=== PATIENT | male | born 1955 | race Caucasian/White ===

== ENCOUNTER 2017-07-04 15:03 | Emergency (ER) | payer OTHER ==
[~2017-07-04] VITALS: Ht 170.2 cm; Wt 80.1 kg
[2017-07-04 15:08] VITALS: Ht 170.2 cm; Wt 80.1 kg
[2017-07-04] MEDS ORDERED: CETI10TA84 PO (15:36)
[2017-07-04] MEDS ORDERED: PRAV40TA PO (15:36)
[2017-07-04] MEDS ORDERED: ASPI81TA28 PO (15:36)
[2017-07-04] MEDS ORDERED: LISI-461 PO (15:36)
[2017-07-04] MEDS ORDERED: HYDROCODONE/ACETAMOPHEN 5/325MG TAB PO ONE (16:00)
--- NOTE | 2017-07-04 17:02 | DIAGNOSTIC IMAGING REPORT ---
R RIBS UNILATERAL WITH PA CHEST CLINICAL HISTORY: Right rib pain following fall. COMPARISON STUDY: No previous studies for comparison. FINDINGS: Note is made of a small to moderate right pneumothorax with superior pleural separation of 1.8 cm. There are several age indeterminate anterior right-sided rib fractures. This includes a suspected fracture the anterior right sixth rib. Cardiac size is normal. Mediastinal contours are unremarkable. There is no evidence of pulmonary edema. IMPRESSION: Small to moderate right apical pneumothorax. Several age indeterminate nondisplaced anterior right-sided rib fractures. Electronically signed by: Vikas Espinal M.D. 07/04/2017 5:01 PM Dictated Date/Time: 07/04/2017 4:54 PM
[2017-07-04] MEDS ORDERED: NORCO 5/325MG HOME PACK PO ONE (17:45)
[2017-07-04 17:56] VITALS: BP 116/62; PULSE 72; TEMP 36.5; O2SAT 96
[2017-07-05] MEDS ORDERED: OXYC1TAB3 PO (11:58)
--- NOTE | 2017-07-05 17:29 | EMERGENCY ROOM VISIT NOTE ---
ED Visit Note First contact with patient: 15:15 Chief Complaint: Right rib pain. History of Present Illness: Mr. Beth is a 62-year-old white male who ambulates into the ED complaining of right sided rib pains. Patient reports less than an hour ago he was ice skating with children, slipped and fell and struck the right side of his chest on the ice. He reports at the time of the injury he felt he heard a cracking ribs. Currently he is complaining of pain over the anterior lateral ribs with prominence in the fourth, fifth and sixth ribs. He describes his pain as a sharp sensation. He rates his discomfort 7/10. The pain increases with deep inspiration and palpation. He has not identified any alleviating factors related to the pain. He has not taken any medications for pain prior to arrival at the hospital. Associated with his pain he reports he feels mildly short of breath but when I asked him to distinguish shortness of breath versus difficulty breathing he could not. These reports at the time of the injury he was not feeling lightheaded or dizziness, at the time of the injury he did not strike his head or have a loss of consciousness and since the injury he has had no signs of head injury. Additionally he denies neck pain, back pain, left-sided chest pain, abdominal pain, nausea, vomiting. Review of Systems: As noted above in history of present illness. 8 body systems were reviewed and found to be negative as noted above. Past Medical History: Hypertension, kidney stone, nasal polyp removal. Current Medications: Lisinopril, Pravachol, aspirin, Zyrtec. Allergies to Medications: Patient denies. Social History: Patient is currently employed; he feels safe in his home environment; he denies tobacco and alcohol use. Physical Examination: Vital Signs: Date Time Temp Pulse Resp B/P (MAP) Pulse Ox O2 Delivery O2 Flow Rate FiO2 07/04/17 17:56 36.5 72 20 116/62 96 07/04/17 17:52 72 20 116/62 96 Room Air 07/04/17 16:04 75 20 120/67 96 Room Air 07/04/17 15:08 36.5 75 20 118/69 96 Room Air GENERAL: 62-year-old male in mild to moderate distress due to pain, nontoxic- appearing, afebrile and hemodynamically stable. NEUROLOGICAL: Awake, alert and oriented to person, place and time. Answering questions appropriately and following commands. Normal gait. Good hand eye coordination. No focal motor sensory deficits. SKIN: Warm, dry and pink. No soft tissue trauma noted. HEENT: Atraumatic and normocephalic. No facial trauma noted PERRLA. Sclera white and conjunctiva pink. Airway patent. Speech is normal and clear. Trachea midline. No jugular venous distention. BACK: No tenderness over the bony cervical and thoracic spine. Full range of motion of the cervical spine. No CVA tenderness. THORAX: Lungs sounds are clear to auscultation and equal bilaterally with symmetrical chest wall. No wheezing, rales or rhonchi. Moderate tenderness over the upper right anterior lateral chest wall without bony deformity, bony crepitus, swelling or subcutaneous air. HEART: Regular rate and rhythm. No gallops, rubs or murmurs are appreciated. ABDOMEN: Flat, soft and nontender. Positive bowel sounds in all quadrants. No guarding, rigidity or organomegaly. EXTREMITIES: Moves all extremities well on command and with purpose. All distal neurovascular statuses are intact and equal bilaterally. ED Course: Patient is assessed as noted above. Patient's medication list was reviewed. Patient was given one [place] tablet 5/325 mg I mouth for pain. Right Ribs and PA Chest X-Rays: Were read by myself and the radiologist showing several age indeterminate anterior rib fractures and a small to moderate right apical pneumothorax. Patient's case was reviewed with Dr. Smallwood; we agreed on diagnostic approach, treatment, disposition and plan. Patient was educated about today's findings and instructed on his treatment plan ; he verbalized understanding and agreement with this plan. Clinical Impression: Right pneumothorax. Right rib fractures. Status post fall. Disposition: Patient discharged home in stable condition accompanied by his ; prior to departure he was reassessed and subjectively reported he was feeling better and rated his discomfort 3/10. Plan: Comfort measures were discussed with the patient including rest, ice and a sliding pain scale of acetaminophen and [place]; he was given appropriate narcotic precautions and his name was checked in the state database and no red flags were noted. Patient was encouraged to return within 24 hours for recheck. Patient was encouraged return ED sooner for uncontrolled pain, shortness of breath, coughing up blood, fevers or any new/concerning symptoms.
== END 2017-07-04 17:57 | disposition home or self-care (01) ==
LOC: C.EDB 15:04 → C.EDD 17:57
DX: S22.41XA Multiple fractures of ribs, right side, initial encounter for closed fracture (principal); V09.9XXA Pedestrian injured in unspecified transport accident, initial encounter; Y92.330 Ice skating rink (indoor) (outdoor) as the place of occurrence of the external cause; J93.9 Pneumothorax, unspecified; I10 Essential (primary) hypertension

== ENCOUNTER 2017-07-05 10:46 | Emergency (ER) | payer OTHER ==
[~2017-07-05] VITALS: Ht 170.2 cm; Wt 80.8 kg
[~2017-07-05 10:46] MED LIST: ASPI81TA28 PO; CETI10TA84 PO; LISI-461 PO; PRAV40TA PO
[2017-07-05 11:03] VITALS: TEMP 37; Ht 170.2 cm; Wt 80.8 kg
--- NOTE | 2017-07-05 11:34 | DIAGNOSTIC IMAGING REPORT ---
CHEST 2 VIEWS ROUTINE HISTORY: EVAL R PNEUMOTHORAX FROM YESTERDAY COMPARISON: Chest 07/04/2017. FINDINGS: Small right pneumothorax is decreased in size. This demonstrates a maximal pleural gap of 1.3 cm, previously measuring 1.9 cm. Calcified granuloma within left lung base. Otherwise, the lungs are clear. The heart is normal in size. No pleural effusions. Right anterior rib fractures are better appreciated on the prior study. IMPRESSION: Decrease in size in the small right pneumothorax. Electronically signed by: Iraj Saldana M.D. 07/05/2017 11:33 AM Dictated Date/Time: 07/05/2017 11:31 AM
[2017-07-05 11:50] VITALS: BP 121/70; PULSE 80; O2SAT 95
[2017-07-05] MEDS ORDERED: OXYC1TAB3 PO (11:58)
--- NOTE | 2017-07-05 11:59 | EMERGENCY ROOM VISIT NOTE ---
ED Visit Note First contact with patient: 11:07 CHIEF COMPLAINT: Repeat chest x-ray to evaluate right pneumothorax HISTORY OF PRESENT ILLNESS: Patient is a 62-year-old white male who returns to the emergency department as advised for repeat chest x-ray to evaluate a small right-sided pneumothorax that he sustained yesterday. He fell while at a skating, reported hearing a crunching sound in his right ribs. He was seen and evaluated here where rib with chest x-rays were obtained. He had a small to moderate right apical pneumothorax with roughly 1.8 cm of pleural separation. There were also several anterior right-sided rib fractures which the radiologist characterized as age indeterminate. Patient reports he has felt well since leaving the emergency department yesterday. He did use oxycodone at bedtime, and woke up overnight and used some ibuprofen, but he has not had any medication for discomfort since around 3:00 in the morning. He does note discomfort with coughing and deep breathing. He denies shortness of breath or hemoptysis. No significant worsening pain. REVIEW OF SYSTEMS: Review of systems as per HPI. All other systems reviewed were negative. 10 systems reviewed. PMH: Electronic medical records are reviewed and summarized as above/below. See Problem List. SOCIAL HISTORY: Patient lives at home with his . Nonsmoker.. PHYSICAL EXAM: Vital Signs: Reviewed Nurse's notes. CONSTITUTIONAL: Patient is a pleasant, well-appearing 62-year-old white male who is awake and alert and in no acute distress. LUNGS: Clear to auscultation and breath sounds equal, no wheezes, rales, or rhonchi. HEART: Regular rate and rhythm. CHEST: The right anterior lateral chest wall is tender to palpation but there is no fracture crepitus and no ecchymosis. EMERGENCY DEPARTMENT COURSE: The patient was seen and examined as above. Old records were reviewed, including his chest x-ray from yesterday. Two-view chest was obtained, pneumothorax has decreased in size and now has a maximal pleural gap of 1.3 cm. X-ray findings were reviewed with attending physician, and discussed with the patient. He is otherwise hemodynamically stable. It was felt that he could be safely discharged, with outpatient follow-up with his PCP for repeat chest x-ray later this week. He was offered an albuterol inhaler , but declined. He will perform deep breathing exercises as he previously had been instructed. He was provided a prescription for oxycodone for pain, which is certainly reasonable given his injury. Differential diagnoses Entertained included persistent/worsening/improved pneumothorax, rib fractures, mediastinal injury, pneumonia, among others. Medication reconciliation: I attest that I have personally reviewed the patient' s current medication list. Blood pressure screening : Patient was found to have normal blood pressure on screening and does not require follow-up. CHEST 2 VIEWS ROUTINE HISTORY: EVAL R PNEUMOTHORAX FROM YESTERDAY COMPARISON: Chest 07/04/2017. FINDINGS: Small right pneumothorax is decreased in size. This demonstrates a maximal pleural gap of 1.3 cm, previously measuring 1.9 cm. Calcified granuloma within left lung base. Otherwise, the lungs are clear. The heart is normal in size. No pleural effusions. Right anterior rib fractures are better appreciated on the prior study. IMPRESSION: Decrease in size in the small right pneumothorax. Problem List Medical Problems: (1) Dyslipidemia Status: Chronic (2) Hypertension Status: Chronic Current/Historical Medications Scheduled Aspirin (Aspirin Ec), 81 MG PO DAILY Cetirizine (Zyrtec), 10 MG PO DAILY Lisinopril (Zestril), 10 MG PO DAILY Pravastatin Sodium (Pravachol), 1 TAB PO DAILY Scheduled PRN Oxycodone Immediate Rel Tab (Roxicodone Ir), 1-2 TAB PO Q4H PRN for Severe Pain Allergies Coded Allergies: Grass (Verified Allergy, Intermediate, Itchy watery eyes, 07/04/17) POLLEN (Verified Allergy, Intermediate, Itchy watery eyes, 07/04/17) Vital Signs Date Time Temp Pulse Resp B/P (MAP) Pulse Ox O2 Delivery O2 Flow Rate FiO2 07/05/17 11:50 80 18 121/70 95 Room Air 07/05/17 11:03 37.0 80 18 96/59 94 Room Air Departure Information Impression Primary Impression: Pneumothorax, right Additional Impression: Right rib fracture Prescriptions Oxycodone Immediate Rel Tab (ROXICODONE IR) 5 Mg Tab 1-2 TAB PO Q4H Y for Severe Pain, #25 TAB For Initial Treatment Prov: Julia Hernandez PA 07/05/17 Referrals Alex Altamirano M.D. (PCP) Patient Instructions My [facility] Additional Instructions Oxycodone (OxyIR) 5mg: Take 1-2 pills every four hours for breakthrough pain. Avoid alcohol, operating machinery or dangerous equipment, working on ladders or roofs, DRIVING, or situations where being under the influence may be dangerous. It is recommended to use an [id number] stool softener such as Colace, 100mg twice daily while taking this medication to avoid constipation. Ibuprofen(Motrin, Advil) may be used for fever or pain. Use 600mg every six hours as needed. Take with food. Avoid using more than 2400mg in a 24 hour period. Do not use 2400mg per day for more than three consecutive days without physician direction. Prolonged inappropriate use can lead to stomach upset or ulcers. (AND/OR) Acetaminophen(Tylenol) may be used for fever or pain. Use 1000mg every six hours as needed. Avoid using more than 3000mg in a 24 hour period. Apply ice to ribs for swelling and pain. Do deep breathing and coughing exercises as instructed. Limit activities until ribs heal. Follow-up with your family physician this week for recheck, and repeat chest x- ray. Return to the emergency department immediately for any worsening/increasing pain , shortness of breath or difficulty breathing, fevers, vomiting, or any other concerns. Problem Qualifiers
== END 2017-07-05 12:14 | disposition home or self-care (01) ==
LOC: C.EDB 10:47 → C.EDD 12:14
DX: J93.9 Pneumothorax, unspecified (principal); S22.31XA Fracture of one rib, right side, initial encounter for closed fracture; W19.XXXA Unspecified fall, initial encounter; I10 Essential (primary) hypertension; E78.5 Hyperlipidemia, unspecified; Z79.82 Long term (current) use of aspirin; Z79.899 Other long term (current) drug therapy